=== PATIENT | female | born 1945 | race Hispanic/Latino ===

== ENCOUNTER 2018-03-27 09:48 | Emergency (ER) | payer SELFPAY ==
[2018-03-27] MEDS ORDERED: Ketorolac Tromethamine 30 MG/ML VIAL ONE (11:01)
[2018-03-27] MEDS ORDERED: Acetaminophen 500 MG TAB ONE (11:01)
[2018-03-27] MEDS ORDERED: Sodium Chloride 0.9% 1,000 ML ONE (11:02)
[2018-03-27 11:17] LABS: ALT (SGPT) 25 U/L (8-55); AST (SGOT) 34 U/L (5-34); Albumin 3.8 g/dL (3.4-4.8); Alkaline Phosphatase 95 U/L (40-150); Anion Gap 14 mmol/L (10-20); BUN (Urea Nitrogen) 14 mg/dL (9.8-20.1); Bilirubin, Total 0.5 mg/dL (0.2-1.2); CK (CPK) 147 U/L (29-168); Calc. Creatinine Clearance 0 mL/min (70-130); Calcium 6.7 mg/dL (7.8-10.44); Carbon Dioxide 24 mmol/L (23-31); Chloride 104 mmol/L (98-107); Estimated GFR-MDRD 82; Globulin 3.7 g/dL (2.4-3.5); Glucose 121 mg/dL (83-110); Potassium 3.3 mmol/L (3.5-5.1); Protein, Total 7.5 g/dL (6.0-8.3); Sodium 139 mmol/L (136-145)
[2018-03-27 11:20] LABS: #Basophils 0.1 thou/uL (0.0-0.2); #Eosinphils 0.1 thou/uL (0.0-0.7); #Lymphocytes 1.5 thou/uL (1.20-3.40); #Monocytes 0.3 thou/uL (0.11-0.59); #Neutrophils 3.4 thou/uL (1.40-6.50); %Basophils 1.1 % (0.0-1.0); %Eosinophils 1.2 % (0.0-10.0); %Lymphocytes 28.1 % (21.0-51.0); %Monocytes 5.6 % (0.0-10.0); Hemoglobin 11.4 g/dL (12.0-16.0); Mean Corpuscular HGB CONC 31.7 g/dL (32.0-36.0); Mean Corpuscular Hemoglobin 25.5 pg (27.0-31.0); Mean Corpuscular Volume 80.4 fL (78.0-98.0); Mean Platelet Volume 6.9 fL (7.4-10.4); Platelet Count 292 thou/uL (130-400); RBC Distribution Width 15.8 % (11.5-14.5); Red Blood Cell (RBC) Count 4.46 mill/uL (4.20-5.40); White Blood Cell (WBC) Count 5.2 thou/uL (4.8-10.8)
--- NOTE | 2018-03-27 12:03 | RAD ---
PA CHEST AND LEFT RIBS: Date: 03/27/18 INDICATION: Injury to left ribs and chest. FINDINGS: Lungs appear clear of infiltrate on the PA chest. No pneumothorax seen. Calcified granuloma left jeremiah pheral lung and chronic lung parenchymal changes. The oblique film shows motion artifact that is suboptimal. No definite left rib fracture identified; however, there is motion artifact and blurring on the oblique view, making it nondiagnostic. Cortical irregularity of the posterolateral left 8th rib is seen, possibly representing an old fracture. No d efinite acute fracture identified. There are chronic-appearing lung changes as described. IMPRESSION: No definite acute left rib fracture identified. The oblique view of the left ribs is nondiagnostic. POS: [facility]
[2018-03-27 12:21] LABS: CKMB 0.8 ng/mL (0-6.6); Troponin I Less than 0.010 ng/mL (< 0.028)
== END 2018-03-27 12:35 | disposition home or self-care (01) ==
LOC: NAV ERS 09:48
DX: R51 Headache (principal); D64.9 Anemia, unspecified; E83.51 Hypocalcemia; E87.6 Hypokalemia; I10 Essential (primary) hypertension; G43.909 Migraine, unspecified, not intractable, without status migrainosus; Z79.899 Other long term (current) drug therapy
CPT/HCPCS: 80053; 82550; 82553; 84484; 85025; 93005; 96361; 96374; J1885; J7050